=== PATIENT | male | born 1940 | race Caucasian/White ===

== ENCOUNTER 2016-07-19 13:58 | Emergency (ER) | payer MEDICARE, MEDICAID ==
[2016-07-19 13:58] VITALS: BMI 34.2
[2016-07-19 14:16] VITALS: BP 121/91; PULSE 88; RESP 19; TEMP 97.8; O2SAT 100
--- NOTE | 2016-07-19 15:48 | ED PDOC ---
HPI: Back Time Seen by Provider: 07/19/16 14:29 Chief Complaint (Nursing): Back Pain Chief Complaint (Provider): back pain History Per: Patient History/Exam Limitations: no limitations Onset/Duration Of Symptoms: Days (2x), Worse Since (this morning) Current Symptoms Are (Timing): Still Present Severity: Moderate Previous Symptoms: None Associated Symptoms: None Exacerbating Factor(s): Turning, Movement, Standing Additional Complaint(s): 76 year old male with a pertinent medical history of hypercholesterolemia, hypertension, and NIDDM presents to the ED with complaints of left lower sided back pain. He reports that the pain started 2x days ago when he fell off of the edge of his sofa, and it worsens with movement. He reports taking tylenol with mild relief, but the pain worsened this morning which is what prompted him to the ED today. He denies having any other symptoms including leg numbness and tingling, radiation of pain, fever, abdominal pain, and urinary symptoms. PMD: non [facility] provider; Dr. Lorenzo. Past Medical History Reviewed: Historical Data, Nursing Documentation, Vital Signs Vital Signs: Last Vital Signs Temp 97.8 F 07/19/16 14:14 Pulse 88 07/19/16 14:14 Resp 19 07/19/16 14:14 BP 121/91 H 07/19/16 14:14 Pulse Ox 100 07/19/16 14:14 - Medical History PMH: CHF, Colonic Polyps, Diabetes, HTN, Hypercholesterolemia Denies: Chronic Kidney Disease - Surgical History Surgical History: No Surg Hx - Family History Family History: States: Unknown Family Hx - Social History Alcohol: None Drugs: Denies - Home Medications Home Medications: Ambulatory Orders Medication Instructions Recorded Aspirin [Ecotrin] 81 mg PO DAILY 05/04/15 Atorvastatin [Lipitor] 40 mg PO HS 05/04/15 Docusate [Colace] 100 mg PO DAILY 05/04/15 Multivit, Iron, Min #5, FA 1 each PO DAILY 05/04/15 [Strovite Forte Caplet] Quinapril HCl [Accupril] 40 mg PO DAILY 05/04/15 Sitagliptin Phos/Metformin HCl 1 each PO BID 05/04/15 [Janumet Xr 100-1,000 mg Tablet] Terazosin [Hytrin] 5 mg PO DAILY 05/04/15 - Allergies Allergies/Adverse Reactions: Allergies Allergy/AdvReac Type Severity Reaction Status Date / Time No Known Allergies Allergy Verified 05/04/15 08:51 Review of Systems ROS Statement: Except As Marked, All Systems Reviewed And Found Negative Constitutional: Negative for: Fever Gastrointestinal: Negative for: Abdominal Pain Genitourinary Male: Negative for: Dysuria, Frequency, Incontinence, Hematuria Musculoskeletal: Positive for: Back Pain (left lower back pain) Neurological: Negative for: Numbness (no tingling) Physical Exam - Reviewed Nursing Documentation Reviewed: Yes Vital Signs Reviewed: Yes - Physical Exam Appears: Positive for: Well, Non-toxic, Uncomfortable Head Exam: Positive for: ATRAUMATIC, NORMOCEPHALIC Cardiovascular/Chest: Positive for: Regular Rate, Rhythm Respiratory: Positive for: Normal Breath Sounds Gastrointestinal/Abdominal: Positive for: Normal Exam, Soft. Negative for: Tenderness Back: Positive for: Muscle Spasm (left sided lower back tenderness and muscle spasm present). Negative for: L CVA Tenderness, R CVA Tenderness, Vertebral Tenderness, Decreased ROM (normal ROM) Extremity: Positive for: Normal ROM Neurologic/Psych: Positive for: Alert, Oriented (3x) - Laboratory Results Result Diagrams: 07/19/16 16:10 07/19/16 16:10 - ECG O2 Sat by Pulse Oximetry: 100 (RA) Pulse Ox Interpretation: Normal - Progress Re-evaluation Time: 18:30 Condition: Re-examined, Improving,but remains with symptoms Medical Decision Making Medical Decision Makin:29 Initial impression: 77 year old male with traumatic back pain and back contusion. Initial plan: * udip * flexeril 10mg PO * toradol 30mg IM * reevaluation Scribe Attestation: Documented by Florida Zapien, acting as a scribe for Gertrudis Dee MD. Provider Scribe Attestation: All medical record entries made by the Scribe were at my direction and personally dictated by me. I have reviewed the chart and agree that the record accurately reflects my personal performance of the history, physical exam, medical decision making, and the department course for this patient. I have also personally directed, reviewed, and agree with the discharge instructions and disposition. Disposition - Clinical Impression Clinical Impression: Back pain, Low back pain - Patient ED Disposition Is Patient to be Admitted: Transfer of Care Counseled Patient/Family Regarding: Studies Performed, Diagnosis - Disposition Disposition: Transfer of Care Disposition Time: 19:00 Condition: FAIR Patient Signed Over To: Honorio Rowe Handoff Comments: pending CT abdomen and reeval
[2016-07-19 16:22] LABS: BASO % 0.4 % (0.0-2.0); EOS # 0.1 K/uL (0.0-0.7); EOS % 1.2 % (0.0-4.0); HEMATOCRIT 37.8 % (35.0-51.0); LYMPH # 1.6 K/uL (1.0-4.3); LYMPH % 23.6 % (20.0-40.0); MEAN CELL VOLUME 85.1 fl (80.0-94.0); MEAN CORPUSCULAR HEMOGLOBIN 28.2 pg (27.0-31.0); MEAN CORPUSCULAR HGB CONC 33.2 g/dL (33.0-37.0); MEAN PLATELET VOLUME 8.2 fl (7.2-11.7); MONO # 0.5 K/uL (0.0-0.8); NEUT # 4.6 K/uL (1.8-7.0); NEUT % 66.8 % (50.0-75.0); RED CELL DISTRIBUTION WIDTH 16.2 % (11.5-14.5); WHITE BLOOD COUNT 6.8 K/uL (4.8-10.8)
[2016-07-19 16:30] LABS: BLOOD UREA NITROGEN 13 mg/dl (9-20); CALCIUM 9.1 mg/dL (8.4-10.2); CARBON DIOXIDE 26 mmol/L (22-30); CHLORIDE 104 mmol/L (98-107); GFR AFRICAN-AMERICAN > 60; GLUCOSE,RANDOM 223 mg/dL (75-110); POTASSIUM 4.4 MMOL/L (3.6-5.0); SODIUM 144 mmol/l (132-148)
[2016-07-19] MEDS ORDERED: Iodixanol 320 MG/ML 100 ML BOTTLE IV ONE (19:59)
[2016-07-19] MEDS ORDERED: Sodium Chloride 0.9% 50 ML IV ONE (19:59)
--- NOTE | 2016-07-19 21:08 | ED PDOC ---
- Laboratory Results Result Diagrams: 07/19/16 16:10 07/19/16 16:10 - ECG O2 Sat by Pulse Oximetry: 100 (RA) Pulse Ox Interpretation: Normal Medical Decision Making Medical Decision Makin:00 Patient is being signed out to me by Gertrudis Dee MD pending CT scan, reevaluation and final disposition. Of note: communicated with patient by using an interpretation service. 20:45 CT abd and pelvis read and reviewed by radiologist FINDINGS: Lower thorax: Coronary artery calcification. Patchy atelectasis in the imaged lungs. Tiny left pleural effusion. ABDOMEN: Liver: No acute findings. Gallbladder and bile ducts: No acute findings. No radiopaque gallstones. Pancreas: No acute findings. Spleen: No acute findings. Adrenals: No acute findings. Kidneys and ureters: Bilateral fluid attenuation renal lesions that are incompletely characterized but most likely to be benign cysts, the largest of which measures 8.7 cm. No urinary tract dilation or evident urinary tract calculi. Stomach and bowel: There are short segments of mildly dilated small bowel interspersed between normal caliber small bowel loops in the mid to lower abdomen. No focal transition point is identified No bowel wall thickening or pneumatosis intestinalis. Colonic diverticulosis without evidence of acute diverticulitis. Moderate amount of gas and stool present throughout the colon. Appendix: Normal appendix. PELVIS: Bladder: Mild circumferential bladder wall thickening. The bladder is only mildly distended. Reproductive: Enlarged prostate gland, measuring 7 x 5.6 cm in maximal axial dimensions. ABDOMEN and PELVIS: Intraperitoneal space: No free intraperitoneal fluid or air. Bones/joints: Acute, nondisplaced fracture of the posterior left 11th rib. Soft tissues: 17 x 9 x 11 mm fluid attenuation lesion immediately deep to the umbilicus (series 602, image 98). No surrounding inflammatory changes. Tiny, fat-containing umbilical hernia with no evident associated complications. Vasculature: No acute findings. No abdominal aortic aneurysm. Lymph nodes: No acute findings. IMPRESSION: 1. Acute, nondisplaced fracture of the posterior left 11th rib. 2. Tiny left pleural effusion. Patchy atelectasis in the imaged lungs. 3. Short segments of mildly dilated small bowel interspersed between normal caliber small bowel loops may represent peristalsis but differential diagnosis also includes gastroenteritis and an early small bowel obstruction. 4. Moderate amount of gas and stool present throughout the colon. 5. Enlarged prostate gland. Mild circumferential bladder wall thickening may be artifactual due to limited luminal distention or may relate to chronic bladder outlet obstruction but differential diagnosis also includes cystitis. Bladder malignancy is less likely but not excluded. 6. A 17 mm fluid attenuation lesion immediately deep to the umbilicus is most consistent with a urachal cyst. No associated inflammatory changes. 7. Additional non-acute findings as described above. 21:00 Upon reevaluation, patient reports an improvement in his pain. Results and diagnosis of posterior rib fracture status post fall is discussed with the patient. Need for follow up with PMD is also discussed. Patient will be discharged with Rx for tramadol. Patient will follow up with Amelia Tamez MD in 4x days. He is given copies of the CT scan. Scribe Attestation: Documented by Florida Zapien, acting as a scribe for Honorio Rowe MD. Provider Scribe Attestation: All medical record entries made by the Scribe were at my direction and personally dictated by me. I have reviewed the chart and agree that the record accurately reflects my personal performance of the history, physical exam, medical decision making, and the department course for this patient. I have also personally directed, reviewed, and agree with the discharge instructions and disposition. Disposition - Clinical Impression Clinical Impression: Back pain, Low back pain, Fractured rib - POA Present On Arrival: None - Disposition Disposition: Routine/Home Disposition Time: 21:00 Condition: STABLE Prescriptions: traMADol [Ultram] 50 mg PO Q6 PRN #16 tab PRN Reason: back pain Instructions: Rib Fracture (ED), Acute Low Back Pain (ED)
--- NOTE | 2016-07-20 09:12 | CT ---
PROCEDURE: CT Abdomen and Pelvis with contrast HISTORY: lower back pain COMPARISON: None. TECHNIQUE: Contrast dose: 100 cc Visipaque 320. Radiation dose: Total exam DLP = mGy-cm. This CT exam was performed using one or more of the following dose reduction techniques: Automated exposure control, adjustment of the mA and/or kV according to patient size, and/or use of iterative reconstruction technique. FINDINGS: LOWER THORAX: Unremarkable. LIVER: Unremarkable. No gross lesion or ductal dilatation. GALLBLADDER AND BILE DUCTS: Unremarkable. PANCREAS: Unremarkable. No gross lesion or ductal dilatation. SPLEEN: Unremarkable. ADRENALS: Enlarged prostate. Orthogonal measurements 5.8 x 6.5 cm. KIDNEYS AND URETERS: Unremarkable. No hydronephrosis. No solid mass. Incidental finding(s): Simple renal cysts bilaterally right more numerous than left. The largest right renal cysts measure 7.6 cm. VASCULATURE: Unremarkable. No aortic aneurysm. BOWEL: Unremarkable. No obstruction. No gross mural thickening. APPENDIX: Normal appendix. PERITONEUM: Unremarkable. No free fluid. No free air. LYMPH NODES: Unremarkable. No enlarged lymph nodes. BLADDER: Unremarkable. REPRODUCTIVE: Unremarkable. BONES: No acute fracture. OTHER FINDINGS: None. IMPRESSION: No significant or acute findings to account for/ related to the clinical presentation.
== END 2016-07-19 21:36 | disposition home or self-care (01) ==
LOC: H.ER 13:58
DX: M54.9 Dorsalgia, unspecified (principal); M54.5 Low back pain; S22.41XA Multiple fractures of ribs, right side, initial encounter for closed fracture; W22.8XXA Striking against or struck by other objects, initial encounter; Y92.008 Other place in unspecified non-institutional (private) residence as the place of occurrence of the external cause; E11.9 Type 2 diabetes mellitus without complications; E78.00 Pure hypercholesterolemia, unspecified; I10 Essential (primary) hypertension; I50.9 Heart failure, unspecified; Z79.82 Long term (current) use of aspirin
CPT/HCPCS: 74177; 80048; 82948; 85025; 96372; 96374; 99282; J1885; J2270; Q9967